=== PATIENT | male | born 1980 | race Caucasian/White ===

== ENCOUNTER 2018-05-30 08:41 | Emergency (ER) | payer BC ==
[~2018-05-30] VITALS: Ht 177.8 cm; Wt 81.7 kg
[2018-05-30 08:42] VITALS: BP 167/87
== END 2018-05-30 10:42 | disposition home or self-care (01) ==
LOC: ER 08:41
DX: S01.511A Laceration without foreign body of lip, initial encounter (principal); W31.89XA Contact with other specified machinery, initial encounter; Y93.89 Activity, other specified; Y92.89 Other specified places as the place of occurrence of the external cause; Y99.8 Other external cause status

== ENCOUNTER 2019-04-01 22:12 | Emergency (ER) | payer BC, OTHER ==
[~2019-04-01] VITALS: Ht 175.3 cm; Wt 77.1 kg
[2019-04-01 22:18] VITALS: BP 162/90
== END 2019-04-01 23:18 | disposition home or self-care (01) ==
LOC: ER 22:12
DX: S60.021A Contusion of right index finger without damage to nail, initial encounter (principal); X58.XXXA Exposure to other specified factors, initial encounter; Y93.89 Activity, other specified; Y92.89 Other specified places as the place of occurrence of the external cause; Y99.8 Other external cause status

== ENCOUNTER 2019-06-07 03:26 | Emergency (ER) | payer BC, OTHER ==
[~2019-06-07] VITALS: Ht 167.6 cm; Wt 77.1 kg
[2019-06-07] MEDS ORDERED: PREDNISONE 10 M10 M1 PO (03:35)
[2019-06-07] MEDS ORDERED: MUPIROCIN22 GM TOP (03:36)
[2019-06-07] MEDS ORDERED: SENNA-DOCUSATE1 EAC1 PO (04:10)
[2019-06-07] MEDS ORDERED: NORCO 5-325 TA1 EAC1 PO (04:10)
[2019-06-07] MEDS ORDERED: IBUPROFEN 600600 M1 PO (04:10)
[2019-06-07] MEDS ORDERED: AMOXICILLIN 50500 M1 PO (04:10)
[2019-06-07 04:15] VITALS: BP 164/76
== END 2019-06-07 04:20 | disposition home or self-care (01) ==
LOC: ER 03:26
DX: K02.9 Dental caries, unspecified (principal)